=== PATIENT | female | born 1995 | race Caucasian/White ===

== ENCOUNTER 2018-03-29 19:06 | Emergency (ER) | payer OTHER ==
[2018-03-29 19:21] VITALS: BP 118/78
[2018-03-29] MEDS ORDERED: IBUPROFEN 600 MG TAB PO ONE (19:32)
--- NOTE | 2018-03-29 19:32 | EDPHY ---
H & P Stated Complaint: left knee injury Time Seen by Provider: 03/29/18 19:27 HPI/ROS: HPI: This is a 22-year-old female who presents with Chief Complaint: Left knee injury Location: Left knee Quality: Injury Duration: 2-3 hours prior to arrival Signs and Symptoms: No bleeding, no radiation, no numbness, no weakness, no tingling, no incontinence, + decreased range of motion,+ swelling, + pain, no fever Timing: Acute Severity: Moderate Context: Patient was cross-country skiing when she accidentally tripped and fell forward with her skis wedged into the snow. She reports that her left knee he everted and twisted. She reports that she feels discomfort in the posterior and lateral aspect. She had to ski out approximately 2 and 0.5 miles and noted increased swelling and inability to fully extend when she was able to ski to the car from the trail. Denies LOC/head injury/neck pain/dizziness/ nausea/vomiting/amnesia. Modifying Factors: None Comment: ROS: A comprehensive 10 system review of systems is otherwise negative aside from elements mentioned in the history of present illness. MEDICAL/SURGICAL/SOCIAL HISTORY: Medical history: Generally healthy. Does not take any regular medications. LMP 1-7 days ago. Surgical history: Denies Social history: Never smoked. CONSTITUTIONAL: Well-developed, well-nourished, physically fit young adult white female, awake and alert, no obvious distress HEENT: Atraumatic and normocephalic. NECK: supple, no midline tenderness, flexion 45 degrees, extension 45 degrees, right and left lateral flexion 45 degrees. Cardiovascular: Normal S1/S2, regular rate, regular rhythm, without murmur rub or gallop. PULMONARY/CHEST: Symmetrical and nontender. no crepitus. Clear to auscultation bilaterally. Good air movement. No accessory muscle usage. ABDOMEN: Soft, nondistended, nontender, no ecchymosis. EXTREMITIES: 2/2 pulses, strength 5/5, left KNEE: Mild effusion, no medial and lateral joint line tenderness, extension to 120 , flexion to 90 . Mild pain with varus and valgus exam. No pain with anterior drawer or posterior drawer test. Extensor mechanism intact. DIP/PIP/MCP flexion/extension intact with good light touch sensation. no deformities, no clubbing, no cyanosis or edema. NEUROLOGICAL: no focal neuro deficits. GCS 15. Light touch sensation intact. SKIN: Warm and dry, no erythema. no rash. Good capillary refill. Source: Patient Exam Limitations: No limitations - Personal History LMP (Females 10-55): 1-7 Days Ago Current Tetanus Diphtheria and Acellular Pertussis (TDAP): Unsure - Medical/Surgical History Hx Asthma: No Hx Chronic Respiratory Disease: No Hx Diabetes: No Hx Cardiac Disease: No Hx Renal Disease: No Hx Cirrhosis: No Hx Alcoholism: No Hx HIV/AIDS: No Hx Splenectomy or Spleen Trauma: No - Social History Smoking Status: Never smoked Constitutional: Initial Vital Signs Temperature (C) 37 C 03/29/18 19:18 Heart Rate 81 03/29/18 19:18 Respiratory Rate 18 03/29/18 19:18 Blood Pressure 118/78 03/29/18 19:18 O2 Sat (%) 96 03/29/18 19:18 O2 Delivery Mode Room Air Allergies/Adverse Reactions: No Known Allergies Allergy (Unverified 03/29/18 19:18) Home Medications: Medication Instructions Recorded NK [No Known Home Meds] 03/29/18 Medical Decision Making - Diagnostics Imaging Results: Imaging Impressions Knee X-Ray 03/29/18 19:32 Impression: Normal. Procedures: Procedure: Splint placement. A left knee immobilizer and crutches were applied by the Emergency Room fuel retrofitting technician. After application of the splint I returned and re-examined the patient. The splint was adequately immobilizing the joint and distal to the splint the patient's circulation and sensation was intact. ED Course/Re-evaluation: Ice pack applied and ibuprofen 600 mg given Left knee x-ray ordered and my read shows no fracture, dislocation, soft tissue swelling. Placed in knee immobilizer, crutches, orthopedic follow-up for internal derangement No signs of neurovascular compromise/tenting of skin/compartment syndrome/ extremities and joints examined above and below area of concern and are neurovascularly intact. This patient was seen under the supervision of my secondary supervising physician. I evaluated care for this patient independently. Discussed this patient with Dr. Platt who did not see the patient. Differential Diagnosis: Knee injury while [] including but not limited to fracture, ACL injury, contusion, muscular strain, and meniscus injury. - Data Points Medications Given: Discontinued Medications Ibuprofen (Motrin) 600 mg PO EDNOW ONE Stop: 03/29/18 19:33 Last Admin: 03/29/18 19:40 Dose: 600 mg Departure - Departure Disposition: Home, Routine, Self-Care Clinical Impression: Acute traumatic internal derangement of left knee Qualifiers: Encounter type: initial encounter Qualified Code(s): S83.105A - Unspecified dislocation of left knee, initial encounter Sprain of collateral ligament of left knee Qualifiers: Encounter type: initial encounter Qualified Code(s): S83.402A - Sprain of unspecified collateral ligament of left knee, initial encounter Condition: Good Instructions: Knee Sprain (DC), Crutch Instructions (ED), Knee Immobilizer (ED) Additional Instructions: Wear the knee immobilizer while out of bed until seen by Orthopedics or pain- free. Use crutches to aid ambulation. Start with toe-touch weight-bearing status. Take Tylenol 650 mg every 4 hours and/or Ibuprofen 600 mg every 8 hours with food as needed for pain. Apply ice for 30 minutes at a time; 2-3 times per day for the next 1-2 days. Follow up with Orthopedics in 7-10 days if symptoms persist at which time they will evaluate and recommend with you if conservative management versus MRI left knee is indicated. Referrals: Mk Martin MD [Medical Doctor] - As per Instructions
== END 2018-03-29 20:04 | disposition home or self-care (01) ==
DX: S83.402A Sprain of unspecified collateral ligament of left knee, initial encounter (principal); S83.105A Unspecified dislocation of left knee, initial encounter; V00.311A Fall from snowboard, initial encounter; Y93.23 Activity, snow (alpine) (downhill) skiing, snowboarding, sledding, tobogganing and snow tubing; Y92.838 Other recreation area as the place of occurrence of the external cause
CPT/HCPCS: L1830